=== PATIENT | female | born 1985 | race Caucasian/White ===

== ENCOUNTER 2018-02-20 13:11 | Emergency (ER) | payer OTHER, MEDICAID ==
[~2018-02-20] VITALS: Ht 172.7 cm; Wt 93.4 kg
[2018-02-20] MEDS ORDERED: CELEXA10 M1 PO (13:21)
[2018-02-20] MEDS ORDERED: BIRTH CONTROL PILL (13:22)
[2018-02-20] MEDS ORDERED: PREDNISONE 10 M10 MG PO (14:15)
[2018-02-20 14:19] VITALS: BP 109/84
== END 2018-02-20 14:21 | disposition home or self-care (01) ==
LOC: M.ERS 13:11
DX: M77.9 Enthesopathy, unspecified (principal); Z88.5 Allergy status to narcotic agent; Z88.0 Allergy status to penicillin

== ENCOUNTER 2018-06-12 17:27 | Emergency (ER) | payer OTHER, MEDICAID ==
[~2018-06-12] VITALS: Ht 172.7 cm; Wt 90.7 kg
[~2018-06-12 17:27] MED LIST: BIRTH CONTROL PILL; CELEXA10 M1 PO; PREDNISONE 10 M10 MG PO
[2018-06-12 18:29] LABS: HEMATOCRIT 40.8 % (37.0-47.0); MCH 29.7 pg (26.0-34.0); MCHC 34.2 g/dL (28.0-37.0); MCV 86.8 fL (80.0-100.0); NUCLEATED RBCS 0 /100WBC; PLATELET COUNT* 242 thou/uL (150-400); RDW-CV 13.4 % (10.5-14.5); WBC 6.3 thou/uL (4.0-11.0)
[2018-06-12 18:59] LABS: ALBUMIN 3.6 g/dL (3.4-5.0); ALKALINE PHOSPHATASE 79 U/L (46-116); ANION GAP 8 mmol/L (7-16); BUN 8 mg/dL (7-18); CALCIUM 8.6 mg/dL (8.5-10.1); CHLORIDE 103 mmol/L (98-107); CO2 27 mmol/L (21-32); CREATININE 0.8 mg/dL (0.6-1.3); GLUCOSE 90 mg/dL (70-99); LIPASE 79 U/L (73-393); MAGNESIUM 2.2 mg/dL (1.8-2.4); POTASSIUM 3.9 mmol/L (3.5-5.1); SGOT 15 U/L (15-37); SGPT 15 U/L (30-65); SODIUM 138 mmol/L (136-145); TOTAL BILIRUBIN 0.2 mg/dL (<0.1-1.0); TOTAL PROTEIN 7.5 g/dL (6.4-8.2); TROPONIN-I LEVEL <0.06 ng/mL (<0.06)
[2018-06-12 19:03] LABS: ABSOLUTE EOSINOPHILS 0.3 thou/uL (0.0-0.7); ABSOLUTE LYMPHOCYTES 1.4 thou/uL (0.8-5.3); ABSOLUTE MONOCYTES 0.6 thou/uL (0.0-1.2); ABSOLUTE NEUTROPHILS 3.9 thou/uL (1.6-8.1); PLATELET ESTIMATE ADEQUATE
[2018-06-12] MEDS ORDERED: FLEXERIL PO (19:06)
[2018-06-12] MEDS ORDERED: HYDROCODONE-AP1 EAC6 PO (19:07)
[2018-06-12 20:20] VITALS: BP 111/79
--- NOTE | 2018-06-13 12:01 | EKG ---
[place] [address] ELECTROCARDIOGRAM REPORT Name: CASEYKEITH Edmonds Room: [facility]#: [id number] Admission: 06/12/18 Attend Phys: Discharge: 06/12/18 Date of : 89 Report #: [id number] THIS REPORT FOR: //name// [facility] Test Date: 2018-06-12 Test Time: 17:34:15 Pat Name: KEITH PEÑA Department: Room: Gender: F Health Advisor: KD : [id number] Requested By: Dougie Gupta Order Number: [id number] MD: Paul Reyes Measurements Intervals [place] Rate: 102 P: 72 MD: 138 QRS: 36 QRSD: 89 T: 7 QT: 337 QTc: 439 Interpretive Statements Sinus tachycardia Probable anteroseptal infarct, old Minimal ST depression, inferior leads Baseline wander in lead(s) II,III,aVF,V2,V3,V4,V5,V6 No previous ECG available for comparison Electronically Signed On 06-13-2018 12:00:48 [employer] by Paul Reyes [email or web address] <ELECTRONICALLY SIGNED> By: Paul Reyes MD, FAC 06/13/18 1200 1734 1734 Paul Reyes MD, [facility] /EPI
== END 2018-06-12 20:24 | disposition home or self-care (01) ==
LOC: M.ERS 17:27
PROVIDERS: Emergency Medicine Emergency Medical Services
DX: R07.89 Other chest pain (principal); F17.210 Nicotine dependence, cigarettes, uncomplicated; Z88.8 Allergy status to other drugs, medicaments and biological substances; Z88.0 Allergy status to penicillin